=== PATIENT | male | born 1985 | race Caucasian/White ===

== ENCOUNTER 2020-04-29 12:11 | Emergency (ER) | payer OTHER ==
[~2020-04-29] VITALS: Ht 177.8 cm; Wt 90.9 kg
[~2020-04-29 12:11] MED LIST: AMOXICILLIN500 MG PO; HYDROXYZ HCL25 MG PO; MEDDOSEPAK PO; ZYRTEC10 M5 PO
[2020-04-29] MEDS ORDERED: ZYRTEC10 MG PO (12:43)
[2020-04-29 13:16] LABS: HEMATOCRIT 47.1 % (39.0-50.0); HEMOGLOBIN 15.8 g/dl (14.0-18.0); IMMATURE GRANULOCYTES 0.4 % (0.0-5.0); MEAN CELL VOLUME 90.2 fL CALC (80.0-100.0); MEAN CORPUSCULAR HGB 30.3 pG CALC (26.0-32.0); MEAN CORPUSCULAR HGB CONC 33.5 g/dL CAL (32.0-36.0); NEUT# 5.4 thou/uL (1.82-7.42); RED BLOOD COUNT 5.22 mill/uL (4.70-6.10); RED CELL DISTRI WIDTH 12.3 % (11.5-15.5)
[2020-04-29 13:18] LABS: GFR > 60 ML/MIN (>=60 (CALC)); GFR FOR AFR.AMER. > 60 ML/MIN (>=60 (CALC))
[2020-04-29 13:35] LABS: ACT PARTIAL THROMBO TIME 21.7 SECONDS (20.0-32.5); PROTHROMBIN TIME 9.8 SECONDS (9.0-12.5)
[2020-04-29 13:36] LABS: ALBUMIN 4.5 g/dL (3.2-5.0); ALKALINE PHOSPHATASE 54 u/l (38-126); ANION GAP 13 (6-22 (CALC)); BILIRUBIN, TOTAL 0.6 mg/dL (0.0-1.4); BUN 12 mg/dL (9-20); BUN/CREATININE RATIO 12 (12-20 (CALC)); CARBON DIOXIDE 26 mmol/l (22-30); CHLORIDE 101 mmol/l (95-108); GFR > 60 ML/MIN (>=60 (CALC)); GFR FOR AFR.AMER. > 60 ML/MIN (>=60 (CALC)); POTASSIUM 3.9 mmol/l (3.5-5.1); SGOT/AST 72 u/l (17-59); SODIUM 136 mmol/l (137-146); TOTAL PROTEIN 7.5 g/dL (6.3-8.2)
[2020-04-29 15:16] VITALS: BP 115/58
--- NOTE | 2020-04-29 16:51 | NUR ---
PT IN BETTER SPIRITS, JOKING AND LAUGHING WITH STAFF. PT REALIZING THAT HE IS NOT STRONG ENOUGH TO GO HOME YET. STILL WAITING FOR [place] APPROVAL FOR PT TO BE TRANSFERRED TO REHAB. PT WATCHING TV AT THIS TIME, VITAL SIGNS REMAIN STABLE.
== END 2020-04-29 15:30 | disposition home or self-care (01) | DRG 605 ==
LOC: ED 12:11
PROVIDERS: Student in an Organized Health Care Education/Training Program
PROC: 0HQ1XZZ Repair Face Skin, External Approach (ICD-10-PCS; principal; 2020-04-29)
DX: S90.31XA Contusion of right foot, initial encounter (principal); S01.21XA Laceration without foreign body of nose, initial encounter; V49.40XA Driver injured in collision with unspecified motor vehicles in traffic accident, initial encounter
CPT/HCPCS: Q9967

== ENCOUNTER 2022-08-31 03:34 | Inpatient (IN) | payer OTHER ==
[~2022-08-31] VITALS: Ht 177.8 cm; Wt 85.8 kg
[2022-08-31] VITALS (28 sets, daily range): BP systolic 115–144; BP diastolic 68–93
[~2022-08-31 03:34] MED LIST changes: +ZYRTEC10 MG PO
[2022-08-31] MEDS ORDERED: GAVISCO3 PO (03:54)
[2022-08-31 04:03] LABS: BASO% 0.1 % (0-3); EOS% 0.1 % (0-8); HEMOGLOBIN 16.3 g/dl (14.0-18.0); IMMATURE GRANULOCYTES 0.1 % (0.0-5.0); MEAN CELL VOLUME 90.9 fL CALC (80.0-100.0); MEAN CORPUSCULAR HGB 29.6 pG CALC (26.0-32.0); MEAN CORPUSCULAR HGB CONC 32.6 g/dL CAL (32.0-36.0); MONO% 6.8 % (2-13); NEUT# 11.3 thou/uL (1.82-7.42); NEUT% 83.9 % (42-76); RED BLOOD COUNT 5.5 mill/uL (4.70-6.10); RED CELL DISTRI WIDTH 11.8 % (11.5-15.5)
[2022-08-31 04:20] LABS: ALBUMIN 5.1 g/dL (3.2-5.0); ALKALINE PHOSPHATASE 61 u/l (38-126); AMYLASE 54 u/l (30-110); ANION GAP 16 (6-22 (CALC)); BUN 12 mg/dL (9-20); BUN/CREATININE RATIO 12 (12-20 (CALC)); CARBON DIOXIDE 28 mmol/l (22-30); CHLORIDE 99 mmol/l (95-108); GFR FOR AFR.AMER. > 60 ML/MIN (>=60 (CALC)); GFR OTHER RACES > 60 ML/MIN (>=60 (CALC)); LIPASE 59 u/l (23-300); POTASSIUM 4.1 mmol/l (3.5-5.1); SGOT/AST 26 u/l (17-59); SODIUM 138 mmol/l (137-146); TOTAL PROTEIN 8.5 g/dL (6.3-8.2)
[2022-08-31 22:37] LABS: URINE BLOOD DIPSTICK NEGATIVE (NEGATIVE); URINE COLOR YELLOW; URINE GLUCOSE - DIPSTICK NEGATIVE (NEGATIVE); URINE KETONE 15 mg/dL (NEGATIVE); URINE LEUK ESTERASE NEGATIVE (NEGATIVE); URINE PROTEIN - DIPSTICK TRACE mg/dL (NEG-TRACE); URINE SPECIFIC GRAVITY 1.015
[2022-08-31 22:51] LABS: URINE BILIRUBIN - DIPSTICK SEE COMMNET (NEGATIVE); URINE NITRITE - DIPSTICK NEGATIVE (Negative)
[2022-09-01] VITALS (8 sets, daily range): BP systolic 108–122; BP diastolic 68–80
[2022-09-02] VITALS (7 sets, daily range): BP systolic 102–128; BP diastolic 66–75
[2022-09-02 06:37] LABS: BASO% 0.2 % (0-3); EOS% 0.6 % (0-8); IMMATURE GRANULOCYTES 0.1 % (0.0-5.0); LYMPH% 11.9 % (15-41); MEAN CELL VOLUME 93.4 fL CALC (80.0-100.0); MEAN CORPUSCULAR HGB 30.1 pG CALC (26.0-32.0); MEAN CORPUSCULAR HGB CONC 32.3 g/dL CAL (32.0-36.0); MONO% 9.2 % (2-13); NEUT# 7.21 thou/uL (1.82-7.42); RED BLOOD COUNT 4.08 mill/uL (4.70-6.10); RED CELL DISTRI WIDTH 12.2 % (11.5-15.5)
[2022-09-02 07:00] LABS: HEMATOCRIT 38.1 % (39.0-50.0); HEMOGLOBIN 12.3 g/dl (14.0-18.0)
[2022-09-02 07:08] LABS: ALBUMIN 2.8 g/dL (3.2-5.0); ALKALINE PHOSPHATASE 39 u/l (38-126); ANION GAP 9 (6-22 (CALC)); BILIRUBIN, TOTAL 0.6 mg/dL (0.2-1.3); BUN 7 mg/dL (9-20); BUN/CREATININE RATIO 9 (12-20 (CALC)); CARBON DIOXIDE 26 mmol/l (22-30); CHLORIDE 105 mmol/l (95-108); CREATININE 0.8 mg/dL (0.7-1.3); GFR FOR AFR.AMER. > 60 ML/MIN (>=60 (CALC)); GFR OTHER RACES > 60 ML/MIN (>=60 (CALC)); POTASSIUM 3.8 mmol/l (3.5-5.1); SGOT/AST 41 u/l (17-59); SODIUM 136 mmol/l (137-146); TOTAL PROTEIN 5.5 g/dL (6.3-8.2)
[2022-09-03 05:44] VITALS: BP 116/71
[2022-09-03 06:49] VITALS: BP 111/72
[2022-09-03 08:49] VITALS: BP 134/88
[2022-09-03] MEDS ORDERED: PERCOCET 5/325M1 TAB PO (10:44)
[2022-09-03] MEDS ORDERED: AMOX/K CLAV875 M1 PO (10:45)
== END 2022-09-03 11:16 | disposition home or self-care (01) | DRG 419 ==
LOC: ED 03:34 → MS2 06:06
PROVIDERS: Emergency Medicine; Surgery; ADMIT Internal Medicine; ATTEND Internal Medicine
PROC: 0DB78ZX Excision of Stomach, Pylorus, Via Natural or Artificial Opening Endoscopic, Diagnostic (ICD-10-PCS; 2022-08-31)
PROC: 0FT44ZZ Resection of Gallbladder, Percutaneous Endoscopic Approach (ICD-10-PCS; principal; 2022-09-01)
DX: K80.00 Calculus of gallbladder with acute cholecystitis without obstruction (principal); K82.A1 Gangrene of gallbladder in cholecystitis; K82.8 Other specified diseases of gallbladder; K31.9 Disease of stomach and duodenum, unspecified; K31.89 Other diseases of stomach and duodenum; Z87.11 Personal history of peptic ulcer disease
CPT/HCPCS: A9537; J0131; J1650; Q9967; S0164